=== PATIENT | female | born 1980 | race Caucasian/White ===

== ENCOUNTER 2022-05-25 10:02 | Emergency (ER) | payer MEDICAID, SELFPAY ==
[2022-05-25 10:05] VITALS: BP 126/91; PULSE 74; RESP 17; TEMP 36.4; O2SAT 100; BMI 18.6
--- NOTE | 2022-05-25 10:49 | EDS_ITS ---
HPI History of Present Illness Chief Complaint: Abscess Informant: patient Onset/Context/Timing Onset: Days (3) Context: Gradual Onset Timing: Continuous Quality: sore Location: tailbone Current Severity: Severe Maximum Severity: Severe Worsened by: touching/palpation/sitting Relieved by: leaving alone Narrative Narrative: Patient has had abscess in left axilla in the past and feels like she is having another 1 growing on her tailbone over the last 3 days. No spontaneous drainage. Very painful. No fevers or chills. Pain radiates up her back. She states she broke her coccyx 15 years ago and it is chronically sore and this is over that area. She denies any recent injury. [facility] Medical History Arthritis Asthma COPD (chronic obstructive pulmonary disease) Seizures Home Medications albuterol 90 mcg/actuation aerosol inhaler 1 - 2 mcg inhalation Q4H PRN Shortness Of Breath Or Wheezing 05/25/22 [History Last Taken Unknown] mupirocin 2 % topical ointment 1 applic topical BID 10 days #15 grams 05/25/22 [Rx Last Taken Unknown] sulfamethoxazole 800 mg-trimethoprim 160 mg tablet 1 tab PO BID #20 TABLETS 05/25/22 [Rx Last Taken Unknown] Allergy/AdvReac Type Severity Reaction Status Date / Time Penicillins Allergy Hives Verified 05/25/22 10:03 Social History Smoking Status: Current every day smoker tobacco type: cigarettes ROS ROS ED Constitutional Constitutional ED: Denies chills or fever(s) Gastrointestinal Gastrointestinal: Denies abdominal pain, nausea or vomiting Musculoskeletal Musculoskeletal: Reports back pain Integumentary Reports abscess; Denies rash Neurologic Neurologic: Denies headache(s), paresthesias or weakness EXAM Physical Exam Const Vital Signs: 05/25/22 10:05 Temperature 97.6 F L Temperature Source Temporal Pulse Rate 74 Respiratory Rate 17 Blood Pressure 126/91 H Blood Pressure Mean 102 Pulse Ox 100 Oxygen Delivery Method Room Air Positive well nourished and well developed General Appearance ED: well developed and NAD Resp normal respiratory effort Back/Spine Back/Spine Narrative: Abscess near her tailbone but a little proximal. The abscess is pointing, fluctuant, erythematous, very tender without surrounding cellulitis, maybe 2 cm diameter. It is proximal to the cleft of the buttocks, it is not perianal. Neuro oriented x3, CN's II-XII intact bilaterally and no sensory deficits noted Motor Exam: strength 5/5 throughout Psych mental status grossly normal Skin Skin Narrative: Abscess low back/tailbone see above, no other rashes or lesions. MDM MDM MDM Narrative Medical decision making narrative: Abscess is drained see the procedure note. I dressed it with bacitracin. I started her on Bactrim which she tolerated well here, and gave her appropriate instructions for sitz bath's and follow-up. This is in the right area for a pilonidal but she has never had this before and this is very superficial and probably not a true pilonidal but if it recurs I recommend following up with surgery. Procedures Other Procedures Procedure(s): Simple incision and drainage abscess low back/sacrum: Area was anesthetized with 4 cc of plain 1% lidocaine after isopropanol prep. It was then prepped again with chlorhexidine, incised centrally with a #10 blade, probed and deloculated bluntly, small amount of purulent material was expressed and a central plug, but the cavity was not very deep or large. Irrigated with saline sterilely, cleansed and dressed with bacitracin. Tolerated well no complications. Discharge Plan Triage Chief Complaint: Abscess ED Provider: Rob Brock Dx/Rx/DC Orders Clinical Impression: Cutaneous abscess of back [any part, except buttock] Instructions: Taking a Sitz Bath, ED Abscess Incision And Drainage Prescriptions: New mupirocin 2 % ointment 1 applic topical BID 10 Days Qty: 15 0RF Rx Instructions: to both nostrils and/or any wounds sulfamethoxazole-trimethoprim [sulfamethoxazole-trimethoprim] 800-160 mg tablet 1 tab PO BID Qty: 20 0RF No Action albuterol 90 mcg/actuation Aerosol 1 - 2 mcg INHALATION Q4H PRN (Reason: Shortness Of Breath Or Wheezing) Primary Care Provider: Care Physician,No Primary Referrals: Sofia Carbone MD [Med Staff - Active Staff] - As Needed (if not healing or if recurrent; may also come to ER for drainage if recurs) Care Physician,No Primary [Primary Care Provider] - Activity Restrictions/Additional Instructions: For the next 3 days, do sitz baths twice daily, patting dry and placing new gauze dressing with antibiotic ointment each time. Disposition Disposition: Home, Self Care
[2022-05-25] MEDS: Smz/Tmp Ds Tablet 1 TABLET PO (10:54)
[2022-05-25] MEDS: Lidocaine 1% (20 ml mdv) 20 ML Vial INFILT (10:54)
--- NOTE | 2022-05-25 13:18 | CM.ED ---
SW Note Referral Source: Case find Referral Reason: No PCP SW met with patient and introduced herself and role as [facility] [employer]. SW requested permission to speak to patient with guest present, patient agreed. SW inquired about patient's PCP and was informed by patient she has a PCP but couldn't recall their name. SW offered patient information regarding local PCPs as well as nurse/transportation contact information based on her insurance. Patient was receptive towards information. No other concerns/needs voiced at this time. SW remains available if needs arise. Niki Hernandez [employer]ARSE UPHOLSTERER, MELLISSA
[2022-05-25 14:59] VITALS: PULSE 77; RESP 16; O2SAT 100
== END 2022-05-25 15:00 | disposition home or self-care (01) ==
PROVIDERS: Emergency Provider Emergency Medicine; Visit Provider Emergency Medicine
DX: L02.212 Cutaneous abscess of back [any part, except buttock and flank] (principal); J44.9 Chronic obstructive pulmonary disease, unspecified; F17.210 Nicotine dependence, cigarettes, uncomplicated; Z79.899 Other long term (current) drug therapy
CPT/HCPCS: 10060; 99283; A4216

== ENCOUNTER → 2023-03-28 | Outpatient (CLI) | payer MEDICAID, SELFPAY ==
--- NOTE | 2023-03-28 14:20 | RAD_ITS ---
EXAM: XR BILATERAL RIBS, 3 VIEWS CLINICAL INDICATION: RIb pain TECHNIQUE: Frontal and oblique views of the bilateral ribs. COMPARISON: No relevant prior studies available. FINDINGS: LUNGS AND PLEURAL SPACES: No consolidation or edema. No pneumothorax. No effusion. BONES/JOINTS: Old healed left rib fractures. No acute fracture is seen. SOFT TISSUES: No soft tissue swelling or gas. RAD/Ribs Bilat 3V No CXR IMPRESSION: No acute findings in the bilateral ribs. Electronically Signed: Diane Kc MD at 23:19 EDT Reading Location ID and State: [id number] / Tel , Service support ,
== END | disposition home or self-care (01) ==
LOC: MTRAD 14:15
PROVIDERS: PCP Family Medicine; Referring Provider Family Medicine; Visit Provider Family Medicine
DX: R07.81 Pleurodynia (principal)
CPT/HCPCS: 71110

== ENCOUNTER → 2023-04-11 | Outpatient (CLI) | payer MEDICAID, SELFPAY ==
[2023-04-14 10:09] LABS: Chlamydia By Nucleic Acid AMP Negative (Negative); Gonococcus By Nucleic Acid AMP Negative (Negative)
== END | disposition home or self-care (01) ==
PROVIDERS: PCP Family Medicine; Visit Provider Family Medicine
DX: N89.8 Other specified noninflammatory disorders of vagina (principal); Z11.3 Encounter for screening for infections with a predominantly sexual mode of transmission
CPT/HCPCS: 87210; 87491; 87591

== ENCOUNTER → 2023-05-01 | Outpatient (CLI) | payer MEDICAID, SELFPAY ==
--- NOTE | 2023-05-01 15:29 | RAD_ITS ---
STUDY: X-RAY - SACRUM/COCCYX REASON FOR EXAM: Female, 42 years old. Injury. Pain. TECHNIQUE: 3 view(s) of the sacrum and coccyx were obtained. COMPARISON: None. FINDINGS: Normal bilateral sacroiliac joints. Normal visualized sacral ala and fused sacral bodies. Normal sacrococcygeal junction with a normal angulation. Normal coccygeal segments. The presacral soft tissue structures are normal. RAD/Sacrum-Coccyx min 2 Views IMPRESSION: Normal x-rays of the sacrum and coccyx. Electronically Signed: Shlomo Monae MD at 10:52 EST ,
== END | disposition home or self-care (01) ==
LOC: MTRAD 15:28
PROVIDERS: PCP Family Medicine; Referring Provider Family Medicine; Visit Provider Family Medicine
DX: S39.92XA Unspecified injury of lower back, initial encounter (principal); X58.XXXA Exposure to other specified factors, initial encounter
CPT/HCPCS: 72220

== ENCOUNTER → 2023-05-17 | Outpatient (CLI) | payer MEDICAID, SELFPAY ==
[2023-05-24 00:07] LABS: HPV APTIMA, High Risk Negative (Negative)
[2023-05-24 20:36] LABS: HPV Reflexed? YES, CHARGE PATIENT
== END | disposition home or self-care (01) ==
LOC: LABSPEC 15:35
PROVIDERS: PCP Family Medicine; Referring Provider Nurse Practitioner Family; Visit Provider Nurse Practitioner Family
DX: Z12.4 Encounter for screening for malignant neoplasm of cervix (principal)
CPT/HCPCS: 87624; 88175; G0145

== ENCOUNTER → 2023-08-24 | Outpatient (CLI) | payer MEDICAID, SELFPAY ==
--- NOTE | 2023-08-24 11:46 | RAD_ITS ---
STUDY: X-RAY - LEFT WRIST REASON FOR EXAM: Female, 42 years old. Swollen left wrist TECHNIQUE: 3 view(s) of the wrist were obtained. COMPARISON: None. FINDINGS: The patient is status post open reduction and fixation of a distal radial fracture. The fracture is healed and there is good alignment. Normal radiocarpal articulation. Normal distal radioulnar articulation. Normal carpal bones. Normal carpal articulations. Normal carpometacarpal articulation of the thumb. Normal second through fifth carpometacarpal articulations. Normal visualized metacarpal bones. The soft tissue structures are unremarkable. RAD/Wrist min 3 Views IMPRESSION: Status post open reduction and internal fixation of the distal radial fracture. The fracture is healed. There is good alignment. Electronically Signed: He Larson MD at 15:31 EDT ,
== END | disposition home or self-care (01) ==
LOC: MTRAD 11:45
PROVIDERS: PCP Family Medicine; Referring Provider Family Medicine; Visit Provider Family Medicine
DX: M25.432 Effusion, left wrist (principal)
CPT/HCPCS: 73110

== ENCOUNTER → 2023-09-29 | Outpatient (CLI) | payer MEDICAID, SELFPAY ==
--- NOTE | 2023-09-29 11:32 | RAD_ITS ---
EXAM: XR RIGHT SHOULDER COMPLETE, 2 OR MORE VIEWS CLINICAL INDICATION: Shoulder pain TECHNIQUE: Two or more views of the right shoulder. COMPARISON: No relevant prior studies available. FINDINGS: BONES/JOINTS: Unremarkable. No acute fracture. No subluxation. Normal alignment. Preservation of the joint space. No sclerotic or destructive changes observed. SOFT TISSUES: Unremarkable. No soft tissue swelling or gas. No radiopaque foreign body. RAD/Shoulder min 2 Views IMPRESSION: Negative right shoulder x-rays. Electronically Signed: Stu Gleason MD at 5:06 EDT ,
== END | disposition home or self-care (01) ==
LOC: MTRAD 11:32
PROVIDERS: PCP Family Medicine; Referring Provider Family Medicine; Visit Provider Family Medicine
DX: M25.511 Pain in right shoulder (principal)
CPT/HCPCS: 73030

== ENCOUNTER 2023-11-21 21:20 | Emergency (ER) | payer MEDICAID, SELFPAY ==
[2023-11-21 21:21] VITALS: BP 97/62; PULSE 108; RESP 25; TEMP 36.3; O2SAT 100; BMI 20.3
--- NOTE | 2023-11-21 21:40 | ED.RN ---
Patient's spouse comes to the desk asking how long it will be until a doctor see's patient as she is in a significant amount of pain. This RN updated family that the the ER is very busy but her chart is 2nd up to be seen and the doctors are working through as fast as they can. Primary nurse at bedside providing emotional support and continuous explanation.
--- NOTE | 2023-11-21 22:00 | ED.RN ---
Pt calling out multiple times demanding to be seen sooner. Explained to pt and family that ER is extremely busy and pt will be seen as soon as doctor is available. Pt states I will bailey you for medical malpractice RN suggested repositioning, ice packs but pt refused. Pt again informed she will be seen as soon as possible.
--- NOTE | 2023-11-21 22:07 | CT_ITS ---
INDICATION: trauma EXAMINATION: CT Spine Cervical W/O Contrast Injection TECHNIQUE: Helically acquired images were obtained of the cervical spine with sagittal and coronal reconstructed images. Individualized dose optimization techniques were used for this CT. IV contrast dosage and agent: None. COMPARISON: None. FINDINGS: VERTEBRAE: No fracture or subluxation. The craniocervical junction is unremarkable. [id number] degenerative changes, worse at C5-C6 and C6-C7. NECK SOFT TISSUES: The prevertebral soft tissues are unremarkable. No pathologically enlarged lymph nodes. THYROID: Unremarkable. LUNG APICES: Centrilobular emphysematous changes. CT/Spine Cervical without Contras IMPRESSION: No fracture or subluxation. Electronically Signed: Omero Ferrara DO at 23:17 EDT ,
--- NOTE | 2023-11-21 22:07 | CT_ITS ---
INDICATION: fall EXAMINATION: CT BRAIN - CT Head or Brain W/O Contrast Injection TECHNIQUE: Multiple axial images were obtained of the head with sagittal and coronal reconstructed images. Individualized dose optimization techniques were used for this CT. IV contrast dosage and agent: None. COMPARISON: None. FINDINGS: BRAIN PARENCHYMA: No evidence of an acute infarct or intracranial hemorrhage. No evidence of a mass. Left temporal lobe encephalomalacia. CSF SPACES: The ventricles, sulci and subarachnoid cisterns are appropriate for age. CALVARIUM, SKULL BASE, PARANASAL SINUSES AND MASTOID AIR CELLS: No fracture. Mastoid air cells are clear. Small air-fluid level in the left maxillary sinus. Mucosal thickening of the ethmoid and sphenoid sinuses. ORBITS: The globes, extraocular muscles, optic nerves and retrobulbar fat are unremarkable. CT/Brain/Head without Contrast IMPRESSION: 1. No fracture or acute intracranial abnormality. 2. Sinus disease. Electronically Signed: Omero Ferrara DO at 23:13 EDT ,
--- NOTE | 2023-11-21 22:15 | EX.ED.GENINJ ---
HPI History of Present Illness Chief Complaint: Fall Informant: patient Onset/Context/Timing Onset: Today Narrative Narrative: Patient presents via EMS after a fall down steps. She states she was carrying a table down some steps in her new home when she fell. She complains of severe pain to her left elbow. She is not sure if she lost consciousness. She did receive 100 mcg of fentanyl with EMS for pain. [facility] Medical History Seizures Arthritis Asthma COPD (chronic obstructive pulmonary disease) Home Medications ?Medication ?Instructions ?Recorded ?Last Taken ?Type albuterol 90 mcg/actuation aerosol 1 - 2 mcg inhalation Q4H PRN 05/25/22 Unknown History inhaler Shortness Of Breath Or Wheezing mupirocin 2 % topical ointment 1 applic topical BID 10 days #15 05/25/22 Unknown Rx grams sulfamethoxazole 800 1 tab PO BID #20 TABLETS 05/25/22 Unknown Rx mg-trimethoprim 160 mg tablet Allergy/AdvReac Type Severity Reaction Status Date / Time Penicillins Allergy Hives Verified 11/21/23 21:24 Social History Smoking Status: Current every day smoker tobacco type: cigarettes ROS ROS ED Constitutional Constitutional ED: Denies chills or fever(s) Eyes Eyes: Denies discharge from eye(s) ENT ENT ED: Denies discharge from eye(s), rhinorrhea or sore throat Cardiovascular Cardiovascular: Denies chest pain Respiratory/Chest Respiratory/Chest: Denies cough or dyspnea Gastrointestinal Gastrointestinal: Denies abdominal pain, nausea or vomiting Musculoskeletal Musculoskeletal: Reports extremity pain; Denies back pain Integumentary Denies Abrasions or rash Neurologic Neurologic: Reports weakness; Denies headache(s) Psychiatric Psychiatric: Reports anxiety; Denies depression Allergic/Immunologic Allergic/Immunologic ED: Denies lip swelling or urticaria EXAM Physical Exam Const Vital Signs: 11/21/23 21:21 11/21/23 21:57 11/21/23 23:20 Temperature 97.4 F L Temperature Source Temporal Pulse Rate 108 H 111 H Pulse Rate [1 (Initial Baseline)] Pulse Rate [2] Pulse Rate [3] Respiratory Rate 25 H 26 H Respiratory Rate [1 (Initial Baseline)] Respiratory Rate [2] Respiratory Rate [3] Respiratory Effort Normal Respiratory Depth Normal Respiratory Pattern Normal Blood Pressure 97/62 185/86 H Blood Pressure [1 (Initial Baseline)] Blood Pressure [2] Blood Pressure [3] Blood Pressure Mean 73 119 Pulse Ox 100 97 Oxygen Delivery Method Room Air Room Air Room Air Oxygen Delivery Method [1 (Initial Baseline)] Oxygen Delivery Method [2] Oxygen Delivery Method [3] 11/21/23 23:43 11/21/23 23:43 11/21/23 23:53 Temperature 97.6 F L Temperature Source Pulse Rate 97 Pulse Rate [1 (Initial Baseline)] 97 Pulse Rate [2] 101 H Pulse Rate [3] 102 H Respiratory Rate 24 H Respiratory Rate [1 (Initial Baseline)] 24 H Respiratory Rate [2] 21 H Respiratory Rate [3] 21 H Respiratory Effort Respiratory Depth Respiratory Pattern Blood Pressure 141/86 H Blood Pressure [1 (Initial Baseline)] 141/86 H Blood Pressure [2] 148/87 H Blood Pressure [3] 125/74 H Blood Pressure Mean Pulse Ox 97 Oxygen Delivery Method Room Air Room Air Oxygen Delivery Method [1 (Initial Baseline)] Room Air Oxygen Delivery Method [2] Room Air Oxygen Delivery Method [3] Room Air 11/21/23 23:55 11/22/23 00:00 11/22/23 01:00 Temperature Temperature Source Pulse Rate 89 Pulse Rate [1 (Initial Baseline)] Pulse Rate [2] Pulse Rate [3] Respiratory Rate 16 Respiratory Rate [1 (Initial Baseline)] Respiratory Rate [2] Respiratory Rate [3] Respiratory Effort Respiratory Depth Respiratory Pattern Blood Pressure 125/75 H Blood Pressure [1 (Initial Baseline)] Blood Pressure [2] Blood Pressure [3] Blood Pressure Mean 91 Pulse Ox 99 Oxygen Delivery Method Room Air Room Air Room Air Oxygen Delivery Method [1 (Initial Baseline)] Oxygen Delivery Method [2] Oxygen Delivery Method [3] Positive well nourished and well developed General Appearance ED: well developed HEENT atraumatic Eyes General Eye ED: Yes other Other Details: Left pupil dilated and eye externally rotated chronically secondary to a prior injury. Neck Neck Narrative: No focal C-spine tenderness. Chest Wall inspection of chest normal and palpation of chest normal Resp normal respiratory effort and clear to auscultation bilaterally Cardio regular rhythm Rate: regular rate GI non-tender Palpation: soft Extremity Extremity Narrative: Left upper extremity in a sling. Tenderness diffusely around the left elbow. Patient can wiggle fingers and has good sensation distally. No focal tenderness at the shoulder. Small abrasion noted over the anterior left knee. Good range of motion. Neuro oriented x3 and moves all extremities Neuro Narrative: Decreased range of motion of the left elbow secondary to pain. Psych Mood & Affect: anxious PROC Procedures Procedural Sedation 1 (Initial Baseline): Consent Signed: Yes Any Problems With Anesthesia: No You/Your family experience fever (hyperthermia) w/anesthesia: No Sedation medication: Propofol Dose: 125 Route: IV Total Moderate Sedation Units: 7 Maliampati Score: Class I ASA Classification: E and II MDM MDM MDM Narrative Medical decision making narrative: IV line has been established by EMS. Patient be given Dilaudid and Zofran for pain control. She will be sent for CT imaging of the head and C-spine to evaluate for intracranial injury or fracture. Left elbow x-rays are obtained to evaluate for fracture or dislocation. Labwork obtained to evaluate for leukocytosis, anemia, and electrolyte derangement. History & Record Review Discussion w/independent historian: Patient Lab Data Attestation: I reviewed the patient's lab results. Labs: Laboratory Results - last 24 hr 11/21/23 22:18 WBC 12.8 H RBC 4.45 Hgb 14.0 Hct 42.4 MCV 95.3 MCH 31.5 MCHC 33.0 RDW Std Deviation 44.7 H RDW Coeff of Anastasiya 12.8 Plt Count 299 MPV 8.9 Immature Gran % (Auto) 0.400 Neut % (Auto) 77.0 H Lymph % (Auto) 14.5 L Eaton % (Auto) 5.7 Eos % (Auto) 1.9 Baso % (Auto) 0.5 Absolute Neuts (auto) 9.8 H Absolute Lymphs (auto) 1.86 Nucleated RBC % 0 Sodium 138 Potassium 4.0 Chloride 111 H Carbon Dioxide 24.0 Anion Gap 3 L BUN 11 Creatinine 0.92 Estim Creat Clear Calc 64.93 Est GFR (MDRD) Af Amer 86 Est GFR (MDRD) Non-Af 71 BUN/Creatinine Ratio 12.0 Glucose 147 H Calcium 8.8 Radiography Diagnostic Testing: Clinical Impression(s) from Imaging Studies Brain CT 11/21/23 22:07 IMPRESSION: 1. No fracture or acute intracranial abnormality. 2. Sinus disease. Electronically Signed: Omero Ferrara DO at 23:13 EDT , Cervical Spine CT 11/21/23 22:07 IMPRESSION: No fracture or subluxation. Electronically Signed: Omero Ferrara DO at 23:17 EDT , Elbow X-Ray 11/21/23 22:30 IMPRESSION: Acute displaced and angulated intra-articular fracture of the olecranon. The radial head and neck are not well visualized due to difficulty with patient positioning and joint alignment is difficult to assess with these views. Electronically Signed: Omero Ferrara DO at 23:25 EDT Reading Location ID and State: [facility] / [place] Tel , Service support , Elbow X-Ray 11/21/23 23:38 IMPRESSION: Displaced, angulated, intra-articular fracture of the olecranon. Displaced fracture of the lateral epicondyle with disruption of the radiocapitellar joint. Electronically Signed: Omero Ferrara, DO at 0:13 EDT , Treatment and Re-Evaluation Narrative: CBC reveals a white count 12.8 with 77% neutrophils. Hemoglobin is 14.0. Chemistry studies significant for glucose of 147. CT scan of the head reveals no acute fracture or intracranial abnormality. CT the C-spine reveals no fracture or subluxation. Left elbow x-rays reveal an acute displaced and angulated intra-articular fracture of the olecranon. The radial head and neck are not well-visualized on initial images. Patient did require multiple doses of narcotics for pain control. We chose to perform procedural sedation for better imaging as well as splint placement. Patient was given a total of 125 mg of propofol in separate aliquots to receive good sedation. Left arm is held in AP position for repeat imaging and elbow x-rays now reveal evidence of a displaced fracture of the lateral epicondyle with disruption of the radiocapitellar joint as well. Elbow is splinted at 90 degrees. Following splint application she has good cap refill and can wiggle fingers. I spoke with our orthopedics here and he states that he does not do upper extremity trauma and recommends she be transferred. Patient would like to go to [facility] in [place]. I have spoken with their transfer line and patient has been accepted to the ED as a trauma evaluation. Addendum: At 01:50 as advised by nursing staff that the patient was to sign out AGAINST MEDICAL ADVICE. She has been told that if she does this she will lose her transfer spot to [facility] and her ride was scheduled to arrive at 6 AM to transfer her. She voices understanding and agreement. She wishes to leave. She did stop at the desk to allow us to remove her IV. Although patient has had multiple doses of narcotics, I do feel that she understands the risks. She has family with her who will drive her. Discharge Plan Triage Chief Complaint: Fall ED Provider: Michelle Ellison Dx/Rx/DC Orders Clinical Impression: Fall, Closed fracture of left elbow Prescriptions: No Action albuterol 90 mcg/actuation Aerosol 1 - 2 mcg INHALATION Q4H PRN (Reason: Shortness Of Breath Or Wheezing) mupirocin 2 % ointment 1 applic topical BID 10 Days Qty: 15 0RF Rx Instructions: to both nostrils and/or any wounds sulfamethoxazole-trimethoprim [sulfamethoxazole-trimethoprim] 800-160 mg tablet 1 tab PO BID Qty: 20 0RF Primary Care Provider: Lucien Mcgrath Referrals: Lucien Mcgrath MD [Primary Care Provider] - Print Language: Kazakh Disposition Disposition: Against Medical Advice Discharge Date/Time: 11/22/23 02:00
[2023-11-21] MEDS: 0.9% Normal Saline (1000mL) 1,000 ML 1000 ML IV (22:16)
[2023-11-21] MEDS: Ondansetron 4 MG/2 ML Vial IV (22:16)
[2023-11-21] MEDS: HYDROmorphone 1 MG/ML Syringe 0.5 MG IV (22:16)
[2023-11-21 22:25] LABS: Absolute Lymphocyte Count 1.86 X10^3/uL (0.83-4.51); Absolute Neutrophil Count 9.8 X10^3/uL (2.0-7.7); Basophil# 0.07 X10^3/uL; Basophil% 0.5 % (0-1); Eosinophil# 0.24 X10^3/uL; Eosinophils% 1.9 % (0-5); Hematocrit 42.4 % (37-47); Lymphocyte # 1.86 X10^3/ul (0.83-4.51); Lymphocyte % 14.5 % (19-41); Mean Corpuscular Hgb 31.5 pg (27.0-32.0); Mean Corpuscular Volume 95.3 fL (81-99); Mean Platelet Vol. 8.9 fl (6.2-12.0); Monocyte# 0.73 X10^3/uL; Monocyte% 5.7 % (0-10); NRBC Flagged by Analyzer 0 % (0-5); Neutrophil # 9.84 X10^3/uL (2.7-7.7); Platelet Count 299 K/mm3 (150-450); RBC Distribution Width CV 12.8 % (11.6-14.6); RBC Distribution Width SD 44.7 fl (35.1-43.9); Red Blood Count 4.45 M/mm3 (4.2-5.4); White Blood Count 12.8 K/mm3 (4.4-11.0)
--- NOTE | 2023-11-21 22:30 | RAD_ITS ---
INDICATION: injury EXAMINATION/TECHNIQUE: X-RAY - LEFT XR Elbow Min 3 Views COMPARISON: None. FINDINGS: SOFT TISSUES: Unremarkable. BONES/JOINTS: Acute displaced and angulated intra-articular fracture of the olecranon. The radial head and neck are not well visualized due to difficulty with patient positioning. Joint alignment is difficult to assess. RAD/Elbow min 3 Views IMPRESSION: Acute displaced and angulated intra-articular fracture of the olecranon. The radial head and neck are not well visualized due to difficulty with patient positioning and joint alignment is difficult to assess with these views. Electronically Signed: Omero Ferrara DO at 23:25 EDT ,
[2023-11-21 22:38] LABS: Anion Gap 3 (5-15); BUN 11 mg/dL (7-18); Calcium,Total 8.8 mg/dL (8.5-10.1); Chloride 111 mmol/L (98-107); Creatinine, Serum 0.92 mg/dL (0.55-1.02); EST Glomerular Filtration Rate 71 mL/min (>60); Est Glom Filt Rate - Afr Amer 86 mL/min (>60); Estimated Creatinine Clearance 64.93 ml/min; Glucose 147 mg/dL (74-106); Sodium Level 138 mmol/L (136-145)
[2023-11-21] MEDS: HYDROmorphone 0.5 MG/0.5 ML SYRINGE IV (22:51)
[2023-11-21 23:20] VITALS: BP 185/86; PULSE 111; RESP 26; O2SAT 97
--- NOTE | 2023-11-21 23:38 | RAD_ITS ---
INDICATION: injury EXAMINATION/TECHNIQUE: X-RAY - LEFT XR Elbow 2 Views COMPARISON: None. FINDINGS/ RAD/Elbow 2 Views IMPRESSION: Displaced, angulated, intra-articular fracture of the olecranon. Displaced fracture of the lateral epicondyle with disruption of the radiocapitellar joint. Electronically Signed: Omero Ferrara DO at 0:13 EDT ,
[2023-11-21 23:43] VITALS: BP 125/74; BP 141/86; BP 148/87; PULSE 101; PULSE 102; PULSE 97; RESP 21; RESP 24; TEMP 36.4; O2SAT 24; O2SAT 93; O2SAT 95; O2SAT 97
[2023-11-21] MEDS: Propofol 200 MG/20 ML Vial IV BOLUS (23:43)
[2023-11-21 23:53] VITALS: BP 139/77; O2SAT 97
[2023-11-21 23:55] VITALS: BP 133/87; O2SAT 98
[2023-11-22] VITALS: BP 139/69; O2SAT 97
[2023-11-22] MEDS: HYDROmorphone 0.5 MG/0.5 ML SYRINGE IV (00:10)
--- NOTE | 2023-11-22 00:47 | ED.RN ---
CALLED PHYSIC[facility]ANS AT 0040 TO SET UP TRAMA TRANSFER THERE ETA IS 0600. I EMPHASIZED THE IMPORTANCE OF THIS [facility]AMA TRANSFER AND HOW IT NEEDS OUTSOURCED. PHYSICIANS SAID THEY'D TRY, BUT WE HAVE A LOT OF PTS GOING OUT. I SAID, I UNDERSTAND HOWEVER, THERE ARE MULTIPLE SQUADS FROM ALL OVER WE CAN CALL. AND KNOWING THIS IS A TRAMA TRANSFER THEY SHOULD BE MORE OPEN OR AVAILABILITY.
[2023-11-22] MEDS: HYDROmorphone 1 MG/ML Syringe IV (00:55)
--- NOTE | 2023-11-22 00:55 | ED.RN ---
Report given to Amaris MORALEZ @ [facility].
[2023-11-22 01:00] VITALS: BP 125/75; PULSE 89; RESP 16; O2SAT 99
--- NOTE | 2023-11-22 01:16 | ED.RN ---
CALLED PHYSICIANS AT 0115 TO GET AN UPDATE FOR THE REQUESTED OUTSOURCE, IT WAS UNSUCCESSFUL. THEY TRIED MEAGAN REYNOSO, YUKI FIGUEROA, AND BRITTA ALL COULDN'T TAKE THE RIDE
--- NOTE | 2023-11-22 01:56 | ED.RN ---
Pt states she does not want to wait for squad. Explained to pt if she left AMA her transfer would be cancelled and she would need to start from scratch upon arrival. She reports I don't give a fuck I am tired of waiting. Informed Dr. Ellison of same, AMA papers signed by Dr. Ellison and patient. Patient ambulates out of department with and son. Jet called and informed of pt leaving AMA.
== END 2023-11-22 02:00 | disposition left against medical advice (07) ==
PROVIDERS: Emergency Provider Emergency Medicine; PCP Family Medicine; Visit Provider Emergency Medicine
DX: S42.402A Unspecified fracture of lower end of left humerus, initial encounter for closed fracture (principal); J44.9 Chronic obstructive pulmonary disease, unspecified; F17.210 Nicotine dependence, cigarettes, uncomplicated; Y93.89 Activity, other specified; Y92.009 Unspecified place in unspecified non-institutional (private) residence as the place of occurrence of the external cause; W10.9XXA Fall (on) (from) unspecified stairs and steps, initial encounter
CPT/HCPCS: 29105; 70450; 72125; 73070; 73080; 80048; 85025; 96361; 96374; 96375; 96376; 99284; J7030; A4216; J2405

== ENCOUNTER 2024-01-02 16:00 | Outpatient (RCR) | payer MEDICAID, SELFPAY ==
--- NOTE | 2023-12-21 08:43 | HP.PTEVAL ---
Patient's Visit Information Visit Information Visit Information: VIKI LLOYD is a 43 year old F referred to Physical Therapy by Lucien Mcgrath MD with a diagnosis of Left Elbow Fracture with Plate/Screws 11/22/23. Date of Evaluation: 12/21/23 Physical Therapist: Mary Blake DPT Visit Plan Frequency: 2x /Week Duration: 6 Weeks Plan: Per Surgeon: ROM, edema control, NWB until next apt will update PT script in 4 weeks (written 12/05/23) HEP Given IE: wrist ROM and PROM elbow flexion/extn Subjective Subjective: Fell down the stairs with a table- broke her left elbow-had surgery in [place] by Dr. Skyler Case for a left closed elbow fracture. Worst: 03/07 Agg: when she wakes up from sleeping or when she puts her arm on the table. Eases: hot water and a heating pad, massaging it. Best: 11/05. The pain is from the elbow all the way down. She has pins in her wrist from a previous injury. Describes the pain as dull and achy and sharp and shooting. No N/T in the fingers more just painful. She does have some neck pain from the fall. She is able to do some of her ADL's but still has some help with getting her shirts off depending on how tight it is. She is wearing a brace that she bought. She is right hand dominate. Work: disabled. Sleep: disturbed PMHx/Meds: in chart. Objective Objective: Posture: forward head, rounded shoulders- can correct but does not maintain- guarding of the left UE Observation: good healing of incision no s/s of infection Palpation: tender along incision-triceps and bicipital groove ROM: Cervical, Shoulder: WNL, Elbow: Flexion: 120 Extn: 40 degrees from full extn Pronation: Full, Supination: neutral. Wrist: WFL-limited due to prior injury/plates Strength: Scap: poor, Shoulder: 4-/5 throughout, Elbow: NT, Wrist: NT, Homeopathic Doctor: 5 lbs Balance/Special Test Scores Quick DASH Score: 95.4525 Goals Goal 1:: Patient will be I with HEP and progression Goal Time Frame: 4-6 Weeks Goal 2:: Patient will demo full AROM of the elbow Goal Time Frame: 6 months Goal 3:: Patient will report sleeping through the night Goal Time Frame: 12-16 Weeks Goal 4:: Patient will maintain proper posture t/o tx session to demo increased scap s/s Goal Time Frame: 6 months Goal 5:: Patient will report return to all normal activities Goal Time Frame: 6 months Goal 6:: Patient will report 80% improvement Goal Time Frame: 6 months Rehabilitation Potential Physical Therapy Diagnosis: Patient presents s/p fall- she has decreased UE ROM, scap s/s, muscular endurance leading to increased pain with ADL's. Rehabilitation Potential: Good Anticipated Interventions Patient/Client Instruction: Educate patient on: Benefits of Fitness Program Therapeutic Exercise to Include: Strength training, Endurance training, Coordination, Agility training, Body mechanics, Postural training, Flexibilty training, Neuromotor development, Passive ROM, Active ROM and Scapular Strength/Stabilization For the Purpose of:: To increase ROM and To improve muscle performance and motor function Manual Therapy Techniques to Include: Passive ROM and Soft tissue mobilization For the Purpose of:: To increase ROM and To improve muscle performance and motor function Cryotherapy (ice pack, ice massage): Yes Thermo therapy (hot pack): Yes Ultrasound (thermal/non thermal): No Text: Thank you for the opportunity to evaluate your patient. For Medicare and Medicare HMO plans, please review the plan of care and approve it. It will need to be FAXED BACK to us at [phone] for Medicare purposes. For Medicare only, by signing this I certify the plan of care. Please let me know if there are questions or concerns regarding this plan of care. Physician Signature: Date:
--- NOTE | 2024-03-22 09:24 | HP.PTDCNRP_ITS ---
Patient Information Patient Information: VIKI LLOYD was seen in my office for initial evaluation on 12/21/23. The following Plan of Care was established for this patient: POC Established Initial Frequency: 2x /Week Initial Duration: 6 Weeks Anticipated Interventions Patient/Client Instruction: Educate patient on: Benefits of Fitness Program Therapeutic Exercise to Include: Strength training, Endurance training, Coordination, Agility training, Body mechanics, Postural training, Flexibilty training, Neuromotor development, Passive ROM, Active ROM and Scapular Stre ngth/Stabilization For the Purpose of:: To increase ROM and To improve muscle performance and motor function Manual Therapy Techniques to Include: Passive ROM and Soft tissue mobilization For the Purpose of:: To increase ROM and To improve muscle performance and motor function Cryotherapy (ice pack, ice massage): Yes Thermo therapy (hot pack): Yes Ultrasound (thermal/non thermal): No Last Seen Last Seen: This patient was last seen in our office . Pertinent comments regarding their Physical therapy will appear below: Pt has not attended PT in over 30 days, appropriate to be d/c and return to MD for further evaluation. At this point I will be discontinuing this patient from physical therapy. I would be happy to see this patient again in the future if found appropriate by the physician. Thank you! Mary Blake, KLARISSAT Balance/Gait/Functional tests Balance/Special Test Scores Quick DASH Score: [phone]
== END 2024-01-02 19:00 | disposition home or self-care (01) ==
LOC: PT 16:00
PROVIDERS: PCP Family Medicine; Referring Provider Orthopaedic Surgery; Visit Provider Orthopaedic Surgery
DX: S42.402D Unspecified fracture of lower end of left humerus, subsequent encounter for fracture with routine healing (principal)
CPT/HCPCS: 97140; 97162

== ENCOUNTER → 2024-04-11 | Outpatient (CLI) | payer MEDICAID, SELFPAY ==
[2024-04-11 10:42] LABS: Absolute Lymphocyte Count 1.91 X10^3/uL (0.83-4.51); Absolute Neutrophil Count 3.9 X10^3/uL (2.0-7.7); Basophil# 0.04 X10^3/uL; Basophil% 0.6 % (0-1); Eosinophil# 0.16 X10^3/uL; Eosinophils% 2.5 % (0-5); Hematocrit 44.6 % (37-47); Lymphocyte # 1.91 X10^3/ul (0.83-4.51); Mean Corp Hgb Conc 33.6 g/dL (32-36); Mean Corpuscular Hgb 32.1 pg (27.0-32.0); Mean Corpuscular Volume 95.3 fL (81-99); Mean Platelet Vol. 9.6 fl (6.2-12.0); Monocyte# 0.37 X10^3/uL; Monocyte% 5.8 % (0-10); NRBC Flagged by Analyzer 0 % (0-5); Neutrophil # 3.87 X10^3/uL (2.7-7.7); Neutrophil % 60.9 % (47-70); Platelet Count 250 K/mm3 (150-450); RBC Distribution Width CV 12.9 % (11.6-14.6); RBC Distribution Width SD 45.4 fl (35.1-43.9); Red Blood Count 4.68 M/mm3 (4.2-5.4); White Blood Count 6.4 K/mm3 (4.4-11.0)
[2024-04-11 11:05] LABS: Follicle Stimulating Hormone 74.6 mIU/mL; Luteinizing Hormone 22.5 mIU/mL
[2024-04-11 14:55] LABS: hCG Titer Quant., Serum < 1 mIU/mL (1-3)
[2024-04-12 04:07] LABS: PROGESTERONE <0.1 ng/mL (.)
[2024-04-15 22:06] LABS: Estrogen, Total, Serum 58 pg/mL (.)
== END | disposition home or self-care (01) ==
PROVIDERS: PCP Family Medicine; Referring Provider Family Medicine; Visit Provider Family Medicine
DX: N92.0 Excessive and frequent menstruation with regular cycle (principal); F32.81 Premenstrual dysphoric disorder
CPT/HCPCS: 36415; 82672; 83001; 83002; 84144; 84702; 85025

== ENCOUNTER → 2024-06-17 | Outpatient (CLI) | payer BC, MEDICAID, SELFPAY ==
[2024-06-20 15:07] LABS: HPV APTIMA, High Risk Negative (Negative)
[2024-06-21 08:07] LABS: HPV Reflexed? YES, CHARGE PATIENT
== END | disposition home or self-care (01) ==
PROVIDERS: PCP Family Medicine
DX: Z12.4 Encounter for screening for malignant neoplasm of cervix (principal)
CPT/HCPCS: 87624; 88175; G0145

== ENCOUNTER → 2024-06-25 | Outpatient (CLI) | payer BC, MEDICAID, SELFPAY ==
--- NOTE | 2024-06-25 08:50 | US_ITS ---
PROCEDURE: TRANSVAGINAL NON- REASON FOR EXAM: Heavy irregular menses TECHNIQUE: Transvaginal pelvic ultrasound COMPARISON: None. FINDINGS: Measurements: Uterus: 11.6 x 5.9 x 4.5 cm. Anteverted uterus. Endometrial Thickness: 10.5 mm. A trilaminar appearance is seen. No focal abnormality is noted. 2 left ovarian cysts are seen, 1 measured at 2.7 x 2.8 x 2.7 cm, in the other 2.4 x 2.3 x 2.3 cm. Normal arterial and venous blood flow is seen at both ovaries. Right Ovary: 3.4 x 2.1 x 2.0 cm.. Left Ovary: 4.9 x 3.8 x 3.1 cm. Uterus: Anteverted. Normal contour and myometrial echotexture. Endometrium: Normal echotexture. Right ovary: Normal size and echotexture. Left ovary: Normal size and echotexture. Cul-de-sac: No free intraperitoneal fluid identified. No tenderness. US/Transvaginal Non- IMPRESSION: 1. 2 left ovarian cysts are seen. 2. No acute process is evident. Reading Location: [id number]
== END | disposition home or self-care (01) ==
LOC: OPUS 08:48
PROVIDERS: PCP Family Medicine
DX: N92.0 Excessive and frequent menstruation with regular cycle (principal)
CPT/HCPCS: 76830

== ENCOUNTER 2024-10-03 14:14 | Outpatient (CLI) | payer BC, MEDICAID, SELFPAY ==
--- NOTE | 2024-10-03 | EMB_PTH ---
PATIENT: VIKI VILLEGAS LOC: [facility]#:[id number] AGE/SX: 44/F ROOM: RE10/03/[address]: CLEVE Araya : 1980 BED: DIS: 10/03/2024 SPEC #: [id number] RECD: 10/03/24 14:35 STATUS: SUSANNE REQ #: [id number] PAO: 10/03/24 00:[address]: Marielos Hamilton NP DEPT: SURGICAL PATHOLOGY RECD BY: Guillermo Negro ENTERED: 10/03/24 15:39 SP TYPE: ENDOM BX/C DEENA DR: Lucien Mcgrath MD Tissues: A - Endometrium, NOS Procedures: Surgery Specimen Level IV HEADER OPERATION: Endometrial biopsy PRE-OP DIAGNOSIS: Abnormal uterine bleeding TISSUE SUBMITTED: A- Endometrial lining MICROSCOPIC DIAGNOSIS A. Endometrium, biopsy: * Inactive to secretory endometrium with widespread progestin change. MICROSCOPIC DESCRIPTION Slides are reviewed. GROSS DESCRIPTION A. Received in formalin in a container labeled with the patient's name, date of , and with no further designation are multiple red-ortiz fragments of soft tissue admixed with blood and mucus measuring 2.8 x 1.5 x 0.3 cm in aggregate. Submitted in toto in A1. [facility] 10-03-2024 CPT:17946
== END 2024-10-03 23:59 | disposition home or self-care (01) ==
LOC: LABSPEC 14:14
PROVIDERS: PCP Family Medicine; Referring Provider Nurse Practitioner Women's Health; Visit Provider Nurse Practitioner Women's Health
DX: N93.9 Abnormal uterine and vaginal bleeding, unspecified (principal)
CPT/HCPCS: 88305

== ENCOUNTER → 2024-12-25 | Outpatient (CLI) | payer BC, MEDICAID, SELFPAY ==
--- NOTE | 2024-12-25 08:49 | BI_ITS ---
EXAM: SCRN MAMM (CAD)W/CHARMAINE BILAT DATE: 12/25/2024 CLINICAL HISTORY: F, Age 44 y/o , SCREENING TECHNIQUE: SCRN MAMM (CAD)W/CHARMAINE BILAT COMPARISON: Baseline examination, no priors. FINDINGS: TISSUE DENSITY: The breasts are extremely dense, which lowers the sensitivity of mammography. The mammogram demonstrates that the patient has dense breasts. Supplemental screening with whole breast ultrasound or MRI may be considered for further evaluation. Bilateral Breast Mammographic Findings: No significant masses, calcifications or other abnormalities are identified. BI/SCRN MAMM (CAD)W/CHARMAINE BILAT IMPRESSION: There is no mammographic evidence of malignancy. OVERALL FINAL ASSESSMENT BI-RADS 1: NEGATIVE. RECOMMENDATION: Routine annual follow-up in 1 Year A letter with findings and recommendations will be mailed to the patient. Reading Location: [id number]
== END | disposition home or self-care (01) ==
LOC: OPBI 08:47
PROVIDERS: PCP Family Medicine; Referring Provider Family Medicine; Visit Provider Family Medicine
DX: Z12.31 Encounter for screening mammogram for malignant neoplasm of breast (principal)
CPT/HCPCS: 77063; 77067

== ENCOUNTER → 2025-01-16 | Outpatient (CLI) | payer BC, MEDICAID, SELFPAY ==
--- NOTE | 2025-01-16 08:59 | US_ITS ---
PROCEDURE: TRANSVAGINAL NON- 01/16/2025 REASON FOR EXAM: AUB TECHNIQUE: TRANSVAGINAL NON- COMPARISON: Prior study dated June 25, 1999 FINDINGS: LMP: November 26, 2024 Measurements: Uterus: 10.3 cm x 6.1 cm x 4.8 cm with a volume of 157.54 mL Endometrial Thickness: 5.1 mm. It is hyperechoic. Nabothian cyst. Right Ovary: 2.6 cm x 2.1 cm x 1 1 cm with a volume of 3.09 mL. Left Ovary: 3.1 cm x 3.6 cm x 1.8 cm with a volume of 10.34 mL. Uterus: Heterogeneous appearance of the myometrium suggestive of fibroid change although no focal fibroid is seen. Endometrium: Unremarkable. Right ovary: Normal size and echotexture. Left ovary: Multiple follicles are seen in the left ovary. Other: No large pelvic mass identified. US/Transvaginal Non- IMPRESSION: Multiple follicles are seen in the left ovary. Enlargement of the uterus with evidence of fibroid change although no focal fib roid is seen. Reading Location: [id number]
== END | disposition home or self-care (01) ==
LOC: US 08:57
PROVIDERS: PCP Family Medicine
DX: N93.9 Abnormal uterine and vaginal bleeding, unspecified (principal); N92.0 Excessive and frequent menstruation with regular cycle
CPT/HCPCS: 76830

== ENCOUNTER → 2025-02-10 | Outpatient (CLI) | payer BC, MEDICAID, SELFPAY ==
[2025-02-10 12:16] LABS: Hematocrit 46.1 % (37-47); Hemoglobin 15.8 g/dL (12.0-15.0); Immature Granulocytes Count 0.020 X10^3/uL (0.0-0.0); Mean Corp Hgb Conc 34.3 g/dL (32-36); Mean Corpuscular Volume 95.1 fL (81-99); Mean Platelet Vol. 10.0 fl (6.2-12.0); NRBC Flagged by Analyzer 0 % (0-5); Platelet Count 263 K/mm3 (150-450); RBC Distribution Width CV 12.3 % (11.6-14.6); RBC Distribution Width SD 42.8 fl (35.1-43.9); Red Blood Count 4.85 M/mm3 (4.2-5.4); White Blood Count 7.8 K/mm3 (4.4-11.0)
== END | disposition home or self-care (01) ==
PROVIDERS: PCP Family Medicine; Referring Provider Nurse Practitioner Women's Health; Visit Provider Nurse Practitioner Women's Health
DX: N92.1 Excessive and frequent menstruation with irregular cycle (principal); N93.9 Abnormal uterine and vaginal bleeding, unspecified
CPT/HCPCS: 36415; 84443; 85025

== ENCOUNTER → 2025-05-08 | Outpatient (CLI) | payer BC, MEDICAID, SELFPAY ==
[2025-05-12 04:06] LABS: Chlamydia By Nucleic Acid AMP Negative (Negative); Gonococcus By Nucleic Acid AMP Negative (Negative)
== END | disposition home or self-care (01) ==
LOC: LABSPEC 13:18
PROVIDERS: PCP Family Medicine; Referring Provider Nurse Practitioner Women's Health; Visit Provider Nurse Practitioner Women's Health
DX: Z11.3 Encounter for screening for infections with a predominantly sexual mode of transmission (principal); N89.8 Other specified noninflammatory disorders of vagina
CPT/HCPCS: 87070; 87205; 87491; 87591